=== PATIENT | male | born 1970 | race Caucasian/White ===

== ENCOUNTER 2017-09-23 17:49 | Emergency (ER) | payer OTHER ==
[~2017-09-23] VITALS: Ht 190.5 cm; Wt 132.6 kg
[2017-09-23] MEDS ORDERED: KETOROLAC 60 MG/2 ML IM ONE (18:30)
[2017-09-23] MEDS ORDERED: KETOROLAC 30 MG/1 ML ONE (18:47)
[2017-09-23] MEDS ORDERED: LISI-167 PO (18:50)
[2017-09-23] MEDS ORDERED: HYDR12.53 PO (18:51)
[2017-09-23 19:00] LABS: BASOPHILS # (AUTO) 0.07 x10^3/uL (0-0.1); BASOPHILS % (AUTO) 1 % (0-1); EOSINOPHILS % (AUTO) 2 % (1-7); LYMPHOCYTES # (AUTO) 2.16 x10^3/uL (1-3.4); LYMPHOCYTES % (AUTO) 22 % (22-44); MD NO; MEAN CORPUSCULAR HGB CONC 34.8 g/dL (33.2-36.2); MEAN CORPUSCULAR VOLUME 94.9 fL (81-97); MEAN PLATELET VOLUME 9.5 fL (7.4-10.4); MONOCYTES # (AUTO) 0.89 x10^3/uL (0.2-0.8); MONOCYTES % (AUTO) 9 % (2-9); NEUTROPHILS # (AUTO) 6.35 x10^3/uL (1.8-6.8); NEUTROPHILS % (AUTO) 66 % (42-75); PLATELET COUNT 261 x10^3/uL (130-400); RED BLOOD COUNT 5.32 x10^6/uL (4.38-5.82); RED CELL DISTRIBUTION WIDTH 12.8 % (9.4-14.8)
[2017-09-23 19:03] LABS: MICROSCOPIC NOT IND
[2017-09-23 19:08] LABS: ANION GAP 7 mmol/L (5-15); CALCIUM 9.2 mg/dL (8.5-10.1); CHLORIDE 108 mmol/L (98-107); CREATININE 1.37 mg/dL (0.7-1.3)
[2017-09-23 19:16] LABS: CULTURE INDICATED? NO
[2017-09-23 20:10] VITALS: BP 103/81
== END 2017-09-23 20:35 | disposition home or self-care (01) ==
LOC: ED 20:27
DX: N20.0 Calculus of kidney (principal)
CPT/HCPCS: 36415; 74176; 80048; 81003; 82040; 85025; 96372; 99285; J1885